=== PATIENT | male | born 1985 | race Caucasian/White ===

== ENCOUNTER 2021-01-11 08:28 | Outpatient (CLI) | payer OTHER ==
[2021-01-11 09:24] VITALS: BP 124/82
--- NOTE | 2021-01-11 09:25 | SLEEP CARE CONSULTATION ---
Information from patient questionnaire entered by Bertha Duran. I have reviewed and concur with the information entered by Bertha Duran. This document represents the service I personally performed and the decisions made by me, Kristi Ornelas ARNP. History of Present Illness Service Date and Time: 01/11/2021827 Reason for Visit: New patient Chief Complaint: reports: Snoring, Observed pauses in breathing, Frequent awakenings at night Date of Onset: 2010 Usual bedtime: 2100 Time it takes to fall asleep: 5-10 minutes Snores at night: Yes Observed to quit breathing while asleep: Yes Sleeps alone due to snoring: No Number of times waking at night: 3-5 Reasons for waking at night: reports: Snoring, Gasping for air (woken up by worried not breathing), Bathroom. denies: Choking Toss, Turn, or Twitch while sleeping: No Recalls having dreams: No Usually gets out of bed at: 0400; later on Sundays only Feels refreshed in the morning: Yes Morning headache: No Sleepy or fatigued during the day: No Ever fallen asleep while driving: No Takes day naps: No Prior sleep studies: No Additional HPI information: I had the pleasure of seeing PATRICK BRIGGS today regarding the possibility of him having a sleep disorder. His current complaints are frequent night awakenings, observed pauses in breathing and snoring. His is waking him up several times worried that he is not breathing. He will jolt awake sometimes for no reason. He feels a little short of breath during these times and his tells him that it sounds like he is fighting for breath. He snores loudly but still sleeps in same room. He does feel rested when he gets up in morning. He can get tired if he gets still on the weekends but overall feels okay, not fatigued. He normally falls asleep pretty quickly at night, no problem falling asleep. He will then wake up frequently during the night. He does not feel he reaches the deep levels of sleep. He wakes up due to snoring, bathroom, unknown reasons and to his waking him up to check on him. He comes from a family of snorers but no one has yet been tested that he knows. 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 Patient is and lives in [place]. Have you smoked in the past 12 months: No Alcohol use: Yes Alcohol amount and frequency: 1-2 beers, 5-6 times/week Caffeine use: Yes Caffeine amount and frequency: 1-2 cups coffee/day Family History Family history of sleep disordered breathing: Yes Family Hx Sleep Apnea: Mother: Snoring, Father: Snoring, Sibling: Snoring, Grandparent: Snoring Allergies and Home Medications Drug allergies reviewed: Yes (primaquine) Home medication list reviewed: Yes (no daily medications or supplements) Review of Systems Cardiovascular: denies: high blood pressure Gastrointestinal: denies: heartburn, difficulty swallowing Neurological: denies: headaches Psychiatric: denies: anxiety, depression Ear/Nose/Throat: reports: injury to nose (broke few yrs ago; no surgery needed), wisdom teeth removed. denies: sinus problems, tonsillectomy Endocrine: denies: thyroid disease Immunologic: denies: allergies to food or environment Physical Exam Blood Pressure: 124/82 (right) Cuff size: wrist Heart Rate: 61 O2 Saturation: 98 Height: 6 ft Weight: 212 lb (with boots/fatigues on) Body Mass Index: 28.7 BMI Classification: Overweight Neck circumference: 16.25 (inches) Nostrils: patent to airflow Mouth and throat: narrow oropharynx Soft palate: long Hard palate: arched Uvula: normal Uvula visualization: 50% Mallampati Class II Tongue: normal in size Tonsils: 1+ Neck: normal w/o lymphadenopathy or thyromegaly Heart: regular rate and rhythm Lungs: clear bilaterally Impression and Plan 1. Suspected Obstructive Sleep Apnea-Hypopnea Syndrome, as suggested by a history of loud and irregular snoring, observed cessation of breath while asleep, gasping or choking in sleep, and frequent awakening during the night. Narrow oropharynx and obesity are common predisposing factors for obstructive sleep apnea-hypopnea syndrome. I recommend proceeding to polysomnography to confirm the diagnosis and to assess severity. If the patient has significant sleep disordered breathing, a manual CPAP titration study will also be performed to find the optimal treatment pressure. I informed the patient of what the sleep studies involve and after some discussion, obtained agreement to proceed. The pathophysiology of obstructive sleep apnea-hypopnea syndrome was discussed with the patient and health risks of cardiovascular and cerebrovascular disease if not treated. AAS brochure for obstructive sleep apnea-hypopnea syndrome given and reviewed. Risks of drowsy driving discussed in detail and patient advised to avoid long distance driving and to ear pull machine operator at the first sign of drowsiness. Patient agreed to plan. * Schedule polysomnography +- manual CPAP titration study and return in 1-2 we eks after the study to discuss result and initiate therapy. * Avoid long distance driving or driving when feeling sleepy. * Avoid alcohol, sedative and muscle relaxant around bedtime. * Attempt to lose weight. * Review instructions provided by trained office staff on how to prepare for the sleep study. * Return for follow-up after sleep study completed. Counseling Topics: Weight loss health impact Visit Type: In Office Time Spent with Patient (minutes): 30 Provider Statement: I spent 100% of the Face to Face Visit with the patient with greater than 50% spent counseling the patient and coordination of care.
== END 2021-01-11 08:29 | disposition home or self-care (01) ==
LOC: SC 08:28
PROVIDERS: ATTEND Nurse Practitioner Family
DX: R06.83 Snoring (principal); R06.81 Apnea, not elsewhere classified; G47.8 Other sleep disorders; E66.3 Overweight; Z68.28 Body mass index [BMI] 28.0-28.9, adult
CPT/HCPCS: 99203; 99212

== ENCOUNTER 2021-04-09 12:29 | Outpatient (CLI) | payer OTHER | END 2021-04-09 12:30 | disposition home or self-care (01) | LOC: SC 12:29 | PROVIDERS: ATTEND Nurse Practitioner Family | DX: G47.33 Obstructive sleep apnea (adult) (pediatric) (principal); R09.02 Hypoxemia | CPT/HCPCS: 95806 ==

== ENCOUNTER 2021-04-19 15:55 | Outpatient (CLI) | payer OTHER ==
--- NOTE | 2021-04-19 16:26 | SLEEP CARE CONSULTATION ---
Information from patient questionnaire entered by Cary Benitez MA. I have reviewed and concur with the information entered by Cary Benitez MA. This document represents the service I personally performed and the decisions made by , Kristi Ornelas ARNP. History of Present Illness Service Date and Time: 04/19/2021 1555 Initial [place] Sleepiness Scale score: 3 (in 2020) Current [place] Sleepiness Scale score: 2 (2021) Additional HPI information: PATRICK BRIGGS returns for follow up and results of the recently performed home sleep study. I explained the pathophysiology behind obstructive sleep apnea. We then spent quite a bit of time discussing different treatment options. For mild obstructive sleep apnea, surgery and oral appliance are alternatives to nasal CPAP therapy but in moderate or severe cases, nasal CPAP is the most effective and reliable treatment. Because apnea is primarily in supine position, then positional management therapy could be effective. Methods discussed such as positioning with pillows, using a T-shirt with tennis balls in the back, and shown commercial products that have a pillow format on back to prevent supine sleep. I reviewed the impact of weight changes on sleep apnea and strongly recommended losing weight. After some discussion, the patient opted to go with the nasal CPAP therapy. Nasal autoCPAP set at 4-15 cmH20 will be ordered with rationale explained. A manual titration study will be ordered if unable to find optimal pressure with office adjustments. I explained how CPAP machine works and what to expect when using the machine. Using CPAP every night in order to get used to it was emphasized. Patient advised to put CPAP mask on before getting into bed so as not to fall asleep without CPAP. To assist acclimation to CPAP use, it could also be used for a short time during day while reading or watching TV. The patient was instructed to call the CPAP supplier to discuss any mechanical problem that may occur. If the mask given is uncomfortable or is difficult to keep on through the night even with adjustment, contact the CPAP supplier as many will replace with another mask style if notified before 30 days. If snoring or perceives is not getting enough air or too much air from the machine, notify this office. [facility] patient education PAP tips reviewed and given to patient. Patient counseled not drink alcohol less than 4 hours before bedtime as it can increase snoring and apnea. Patient was cautioned about risks of drowsy driving until sleepiness symptoms resolve. Sleep Study - Results Type of Sleep Study: Home sleep study Prior sleep studies: No Polysomnography/Home Sleep Study results: Physician Impression: The quality of the study is good. The length of the study is adequate (> 240 minutes). Please also see the tabulated and graphic data. 1. Obstructive Sleep Apnea-Hypopnea (ICD-10 G47.33), mild, with an AHI of 6.4/hr and hesham SaO2 of 88%. During the study, the patient had 25 apneas (24 obstructive, 0 central, 1 mixed) and 14 hypopneas. The longest episode lasted 80.0 seconds. The respiratory events occurred almost exclusively during supine sleep (supine AHI was 8.5 and non-supine, 2.37). 2. Hypoxemia (ICD-10 R09.02), minimal, with the lowest oxygen saturation of 88 % and 1.5 minutes with SaO2 under 90%. Baseline oxygen saturation was normal (Average oxygen saturation was 93%). Allergies and Home Medications Known drug allergies: Yes (PREMAQUINE,) Drug allergies reviewed: Yes Home medication list reviewed: Yes (no changes) Review of Systems Review of systems same as previous: Yes (no changes, G6PD DEFICIENT) Physical Exam Vital signs obtained and entered by: BEKA VANEGAS Blood Pressure: 127/74 (RIGHT, PULSE 60) Cuff size: wrist Heart Rate: 87 O2 Saturation: 97 (WITH CLOTH MASK) Height: 6 ft Weight: 205 lb (CLOTTHES) Body Mass Index: 27.8 BMI Classification: Overweight Impression and Plan 1. Obstructive Sleep Apnea-Hypopnea Syndrome, mild, with lowest oxygen saturation of 88%. Obviously this is the cause of the patients symptoms of unrefreshed sleep, and excessive daytime sleepiness. Positive pressure therapy could benefit his overall health and reduce cardiovascular and cerebrovascular adverse events. As mentioned above, the patient will be started on nasal autoCPAP therapy with pressure set at 4-15 cmH2O. A manual titration study will be completed if unable to find optimal treatment pressure with office adjustments. Compliance guidelines also reviewed. A copy of compliance guidelines will be given for reference at check out. Because the apnea is more severe supine, I instructed to avoid sleeping supine using pillow positioning until able to start CPAP use. 2. Hypoxemia, minimal, with the lowest oxygen saturation of 88 % and 1.5 minutes with SaO2 under 90%. His baseline oxygen saturation was normal with an average oxygen saturation of 93%. * Nasal auto CPAP therapy, pressure at 4-15 cm H2O. * Attempt to lose weight. * Avoid alcohol consumption near bedtime. * Avoid supine sleep until using CPAP. * The patient is again cautioned about driving until sleepiness completely resolves. * Return one month after CPAP obtained. I will assess response to therapy and compliance at that time. Counseling Topics: Weight loss health impact Visit Type: In Office Time Spent with Patient (minutes): 12 Provider Statement: I spent 100% of the Face to Face Visit with the patient with greater than 50% spent counseling the patient and coordination of care.
[2021-04-19 16:27] VITALS: BP 127/74
== END 2021-04-19 15:56 | disposition home or self-care (01) ==
LOC: SC 15:55
PROVIDERS: ATTEND Nurse Practitioner Family
DX: G47.33 Obstructive sleep apnea (adult) (pediatric) (principal); R09.02 Hypoxemia
CPT/HCPCS: 99212

== ENCOUNTER 2022-04-18 15:53 | Outpatient (CLI) | payer OTHER ==
--- NOTE | 2022-04-18 16:42 | SLEEP CARE CONSULTATION ---
Information from patient questionnaire entered by Jessica Corado. I have reviewed and concur with the information entered by Jessica Corado. This document represents the service I personally performed and the decisions made by , Kristi Ornelas ARNP. History of Present Illness Service Date and Time: 04/18/2022 1553 Previous diagnosis: Mild, Obstructive Sleep Apnea-Hypopnea Syndrome AHI: 6.4 Reason for follow up: first compliance (SET UP ) Equipment type: CPAP (RESMED Airsense 11, s/u 04/2021) Equipment obtained from: [employer] (getting supplies) Mask style: Nasal Mask brand: Respironics (Dreamwear) Backup mask available: No (has other mask but can't use it) Last cushion change: 1.5 months Prior sleep studies: No Type of Sleep Study: Home sleep study HPI additional information: PATRICK BRIGGS was diagnosed to have mild, AHI 7.2, obstructive sleep apnea-hypopnea syndrome and returned today for CPAP therapy first compliance follow-up. Sleep Study - Results Type of Sleep Study: Home sleep study Prior sleep studies: No CPAP Compliance Data - Data Reviewed with Patient Average duration of nightly device use: 5 hours 6 minutes Compliance rate %: 20 (10/20 days used) Current pressure setting (cmH2O): 4-15 (medain 6.0, avg 8.4, max 9.3) Average residual AHI: 1.2 Central apnea: 0.2 Obstructive apnea: 0.8 Subjective Missed days of use due to: reports: mask issues (skin irritation), illness (had Covid and flu) Patient concerns: reports: mask discomfort, other (skin redness/rash where silicone touches face). denies: aerophagia, air blowing in eyes, mask leak noise, condensation in mask/hose, nasal congestion, dry mouth, nose, throat, epistaxis Observed to snore while using device: No Current pressure setting perceived as: comfortable On therapy, patient: reports: sleeping better, awakening more refreshed, being more awake and alert during the day, more rested overall. denies: drowsiness while driving Initial [place] Sleepiness Scale score: 3 (in 2020) Current [place] Sleepiness Scale score: 6 (04/18/22) Allergies and Home Medications Drug allergies reviewed: Yes (lidocaine, primaquine) Home medication list reviewed: Yes (no changes) Review of Systems Review of systems same as previous: Yes (no changes) Physical Exam Vital signs obtained and entered by: Jessica Selby MA Blood Pressure: 114/78 (LEFT ARM) Cuff size: regular Heart Rate: 69 O2 Saturation: 97 Height: 6 ft Weight: 229 lb Body Mass Index: 31.0 BMI Classification: Obese Impression and Plan 1. Obstructive Sleep Apnea-Hypopnea Syndrome, mild, with poor treatment compliance and good apnea control. On CPAP therapy, the patient has better sleep quality and is more rested overall. Patient has been struggling with wearing his mask. He has a Dreamwear nasal cushion that he states works really well but he will wake up with skin redness, tenderness where the silicone touches his cheeks. He does not have redness around his nose where the cushion rests against the skin. He would like to try a different mask his greyson told him about, ResMed N20, because it has fabric on the sides the his face. I showed him that he could obtain mask strap covers for his Dreamwear nasal cushion mask to protect his skin. He voiced understanding and will try this first. If it does not work he will order the other mask from his DME. I reviewed with patient that [facility] requires compliance with their CPAP and he agreed to come back to recheck his compliance after he is able to use more with the reduced skin irritation issues. Patient's apnea severity and rationale for treatment to reduce apnea, improve sleep quality and reduce cardiovascular and cerebrovascular events was reviewed. He was happy with current pressure settings and no adjustments will be made. 2. Obesity, unspecified. Currently patients BMI is 31.0. Obesity increases the risk of apnea, CPAP pressure requirements and overall health risks especially cardiovascular and diabetes. Thus patient is advised to lose weight. * Continue auto CPAP pressure at 4-15 cmH2O * Notify me if snoring with mask or feeling that the pressure is too much or too little * Attempt to lose weight * Call this office if any problems using CPAP * Return for follow up in 3 months, or sooner if concerns arise Counseling Topics: Weight loss health impact Visit Type: In Office Time Spent with Patient (minutes): 24 Provider Statement: I spent 100% of the Face to Face Visit with the patient with greater than 50% spent counseling the patient and coordination of care.
[2022-04-18 16:44] VITALS: BP 114/78
== END 2022-04-18 15:54 | disposition home or self-care (01) ==
LOC: SC 15:53
PROVIDERS: ATTEND Nurse Practitioner Family
DX: G47.33 Obstructive sleep apnea (adult) (pediatric) (principal); E66.9 Obesity, unspecified; Z68.31 Body mass index [BMI] 31.0-31.9, adult
CPT/HCPCS: 99212; 99213

== ENCOUNTER 2022-07-17 16:03 | Outpatient (CLI) | payer OTHER ==
--- NOTE | 2022-07-17 16:30 | SLEEP CARE CONSULTATION ---
Information from patient questionnaire entered by Montserrat Corado. I have reviewed and concur with the information entered by Montserrat Corado. This document represents the service I personally performed and the decisions made by , Kristi Ornelas ARNP. History of Present Illness Service Date and Time: 07/17/2022 1603 Previous diagnosis: Mild, Obstructive Sleep Apnea-Hypopnea Syndrome AHI: 6.4 Reason for follow up: other (2 MONTH F/U) Equipment type: CPAP (RESMED Airsense 11, s/u 04/2021) Equipment obtained from: [employer] (waiting to get supplies) Mask style: Nasal Mask brand: Respironics (Dreamwear) Backup mask available: No (will keep old mask when replaced) Prior sleep studies: No Type of Sleep Study: Home sleep study HPI additional information: PATRICK BRIGGS was diagnosed to have mild, AHI 6.4, obstructive sleep apnea-hypopnea syndrome and returned today for CPAP therapy three month follow- up. Sleep Study - Results Type of Sleep Study: Home sleep study Prior sleep studies: No CPAP Compliance Data - Data Reviewed with Patient Average duration of nightly device use: 6 HRS 25 MIN Compliance rate %: 87 (04/17/22-07/15/22; 78/90 days used) Current pressure setting (cmH2O): 4-15 Average residual AHI: 1.0 Central apnea: 0.1 Obstructive apnea: 0.7 Average large leak: 0 Subjective Missed days of use due to: reports: mask issues (resolved with mask change) Patient concerns: denies: aerophagia, mask discomfort, air blowing in eyes, mask leak noise, condensation in mask/hose, nasal congestion, dry mouth, nose, throat, epistaxis Observed to snore while using device: No Current pressure setting perceived as: comfortable On therapy, patient: reports: sleeping better, awakening more refreshed, being more awake and alert during the day, more rested overall. denies: drowsiness while driving Initial [place] Sleepiness Scale score: 3 (in 2020) Current [place] Sleepiness Scale score: 3 (07/17/22) Allergies and Home Medications Known drug allergies: Yes (lidocaine, primaquine) Drug allergies reviewed: Yes Home medication list reviewed: Yes (no changes) Allergy and home medication list: Allergies lidocaine Adverse Reaction (Verified 07/16/22 15:20) Respiratory primaquine Adverse Reaction (Verified 07/16/22 15:20) Respiratory Review of Systems Review of systems same as previous: Yes (no changes) Physical Exam Vital signs obtained and entered by: MONTSERRAT Durbin MA Blood Pressure: 124/70 (LEFT ARM) Cuff size: regular Heart Rate: 76 O2 Saturation: 96 Height: 6 ft Weight: 218 lb 9.6 oz Body Mass Index: 29.6 BMI Classification: Overweight Impression and Plan 1. Obstructive Sleep Apnea-Hypopnea Syndrome, mild, with good treatment compliance and good apnea control. On CPAP therapy, the patient has better sleep quality and is more rested overall. He states that since he changed to the nasal cushion mask, Dreamwear, he is a lot happier. He states it is like "night and day" with being able to use his CPAP. He likes the mask and he is no longer getting skin irritation from the mask. He needs to be able to order supplies but his DME is waiting on his compliance visit today. We will send notification to his DME of his good compliance and visit. Patient's apnea severity and rationale for treatment to reduce apnea, improve sleep quality and reduce cardiovascular and cerebrovascular events was reviewed. 2. Overweight, unspecified. Currently patients BMI is 29.6. Obesity increases the risk of apnea, CPAP pressure requirements and overall health risks especially cardiovascular and diabetes. Thus patient is advised to lose weight. * Continue auto CPAP pressure at 4-15 cmH2O * Notify me if snoring with mask or feeling that the pressure is too much or too little * Attempt to lose weight * Call this office if any problems using CPAP * Return for follow up in 6 months, or sooner if concerns arise Counseling Topics: Spare mask, Weight loss health impact Visit Type: In Office Time Spent with Patient (minutes): 12 Provider Statement: I spent 100% of the Face to Face Visit with the patient with greater than 50% spent counseling the patient and coordination of care.
[2022-07-17 16:31] VITALS: BP 124/70
== END 2022-07-17 16:04 | disposition home or self-care (01) ==
LOC: SC 16:03
PROVIDERS: ATTEND Nurse Practitioner Family
DX: G47.33 Obstructive sleep apnea (adult) (pediatric) (principal); Z68.29 Body mass index [BMI] 29.0-29.9, adult; E66.3 Overweight
CPT/HCPCS: 99212